=== PATIENT | female | born 1965 | race Caucasian/White ===

== ENCOUNTER → 2017-05-26 | Outpatient (CLI) | payer OTHER ==
[~2017-05-26] MED LIST: ASCA500 PO; ATEN-173 PO; BIOT1CAP8 PO; BIOTCAP2 PO; CALC-388 PO; CALC600T9 PO; CRAN1CAP15 PO; CRAN1TAB PO; FISHOIL PO; METO25TA3 PO; MULT-506 PO; OMEGCAP2 PO; OMEP40CA41 PO; PRVIN525X INH; THIA250T7 PO; TURM500T PO; VNTHFA/IN INH
[2017-05-26 09:56] LABS: CHOLESTEROL/HDL RATIO 3.2
== END | disposition home or self-care (01) ==
LOC: C.LAB 07:19
PROVIDERS: ATTEND Family Medicine
DX: Z00.00 Encounter for general adult medical examination without abnormal findings (principal)

== ENCOUNTER → 2017-09-08 | Day surgery (SDC) | payer OTHER ==
[2017-08-27 09:11] VITALS: BMI 34.0
[~2017-09-08] VITALS: Ht 162.6 cm; Wt 90.9 kg
[~2017-09-08] MED LIST changes: -ATEN-173 PO; -BIOT1CAP8 PO; -CALC-388 PO; -CRAN1CAP15 PO; +FENTANYL CITRATE INJ 50 MCG/1 ML 2 ML VIAL ONE; -FISHOIL PO; +LIDOCAINE HCL 2% 2 ML VIAL (20MG/ML) ONE; +PROPOFOL IV EMULSION 10 MG/ML 20 ML VIAL IV ONE; +SODIUM CHLORIDE 0.9% 500ML 500 ML IV ONE
[2017-09-08 11:00] VITALS: Ht 162.6 cm; Wt 90.9 kg
--- NOTE | 2017-09-08 11:20 | Endo History and Physical ---
History & Physical Date of Service: Sep 08, 2017. Chief Complaint: ABDOMINAL PAIN Referring Physician: DR CASTILLO History of Present Illness 52 yo CF who presents for EGD secondary to abdominal pain. Past Medical History Arthritis, Asthma, Reflux, Hypertension, Other Past Surgical History Hx Cardiac Surgery: No Hx Internal Defibrillator: No Hx Pacemaker: No Hx Abdominal Surgery: Yes (XU BSO, GASTRIC BYPASS, X2, LAP DWIGHT) Hx of Implantable Prosthesis: No Hx Post-Op Nausea and Vomiting: No Hx Cancer Surgery: No Hx Thoracic Surgery: No Hx Orthopedic: No Hx Urinary Tract Surgery: No Family History Colon CA Social History Smoking Status: Never Smoker Hx Substance Use: No Hx Alcohol Use: No Allergies Coded Allergies: Penicillins (Verified Allergy, Unknown, HIVES, 08/27/17) Sulfa Drugs (Verified Allergy, Unknown, HIVES, 08/27/17) Current Medications Reported Home Medications Medications Dose Route/Sig Max Daily Dose Days Date Category Ventolin Hfa (Albuterol) 200 Puffs/84673 Mcg Aers 2-4 Puffs INH Q6H PRN 08/27/17 Reported Albuterol Sulfate (Albuterol Sulf) 2.5 Mg/0.5 Ml Nebu 1 Dose INH UD PRN 08/27/17 Reported Biotin 5000 (Biotin) 5 Mg Cap 1 Cap PO QPM 08/27/17 Reported Cranberry (Cranberry (Vaccinium Macrocarp) 125 Mg Tab 1 Tab PO QAM 08/27/17 Reported Turmeric (Turmeric (Curcuma Longa)) 500 Mg Tab 1 Tab PO BID 08/27/17 Reported Vitamin C (Ascorbic Acid) 500 Mg Tab 1,000 Mg PO BID 08/27/17 Reported Vitamin B1 (Thiamine Hcl) 250 Mg Tab 1 Tab PO QAM 08/27/17 Reported Fish Oil ([place]-3 Fatty Acids) 1 Cap Cap 1 Cap PO QAM 08/27/17 Reported Calcium + D (Calcium Carbonate-Vitamin D) 1 Tab Tab 1 Tab PO BID 08/27/17 Reported Multivitamin (Multivitamins) Tab 1 Tab PO QAM 08/27/17 Reported Prilosec (Omeprazole) 40 Mg Cap 40 Mg PO QAM 08/27/17 Reported Toprol-Xl (Metoprolol Succinate) 25 Mg Tabcr 0.5 Tab PO QAM 08/27/17 Reported Vital Signs Weight (Kilograms): 90.91 Height (Feet): 5 Height (Inches): 4 Date Time Temp Pulse Resp B/P (MAP) Pulse Ox O2 Delivery O2 Flow Rate FiO2 09/08/17 11:10 170/100 (123) 09/08/17 11:09 37.1 61 20 161/100 (120) 100 Room Air Physical Exam General Appearance: WD/WN, no apparent distress Respiratory/Chest: Auscultation: breath sounds normal Cardiovascular: Heart Auscultation: RRR Abdomen: Bowel Sounds: normal Inspection & Palpation: soft, non-distended, no tenderness, guarding & rebound Assessment and Plan Assessment: 52 yo CF who presents for EGD secondary to abdominal pain. Plan: Proceed with EGD.
--- NOTE | 2017-09-08 11:48 | Discharge Instructions ---
Endoscopy Patient Instructions Date / Procedure(s) Performed Sep 08, 2017. EGD Allergy Information Coded Allergies: Penicillins (Verified Allergy, Unknown, HIVES, 09/08/17) Sulfa Drugs (Verified Allergy, Unknown, HIVES, 09/08/17) Discharge Date / Findings Sep 08, 2017. Normal EGD Medication Instructions OK to resume all medications today as prescribed Reported Home Medications Medications Dose Route/Sig Max Daily Dose Days Date Category Ventolin Hfa (Albuterol) 200 Puffs/54749 Mcg Aers 2-4 Puffs INH Q6H PRN 08/27/17 Reported Albuterol Sulfate (Albuterol Sulf) 2.5 Mg/0.5 Ml Nebu 1 Dose INH UD PRN 08/27/17 Reported Biotin 5000 (Biotin) 5 Mg Cap 1 Cap PO QPM 08/27/17 Reported Cranberry (Cranberry (Vaccinium Macrocarp) 125 Mg Tab 1 Tab PO QAM 08/27/17 Reported Turmeric (Turmeric (Curcuma Longa)) 500 Mg Tab 1 Tab PO BID 08/27/17 Reported Vitamin C (Ascorbic Acid) 500 Mg Tab 1,000 Mg PO BID 08/27/17 Reported Vitamin B1 (Thiamine Hcl) 250 Mg Tab 1 Tab PO QAM 08/27/17 Reported Fish Oil (Jbphh-3 Fatty Acids) 1 Cap Cap 1 Cap PO QAM 08/27/17 Reported Calcium + D (Calcium Carbonate-Vitamin D) 1 Tab Tab 1 Tab PO BID 08/27/17 Reported Multivitamin (Multivitamins) Tab 1 Tab PO QAM 08/27/17 Reported Prilosec (Omeprazole) 40 Mg Cap 40 Mg PO QAM 08/27/17 Reported Toprol-Xl (Metoprolol Succinate) 25 Mg Tabcr 0.5 Tab PO QAM 08/27/17 Reported Provider Instructions Activity Restrictions - No exercising or heavy lifting for 24 hours. - Do not drink alcohol the day of the procedure. - Do not drive a car or operate machinery until the day after the procedure. - Do not make any important decisions or sign important papers in 24 hours after the procedure. Following Day: - Return to full activity which may include returning to work/school. Diet Start your diet with liquids and light foods (jello, soup, juice, toast). Then eat your usual diet if not nauseated. Treatment For Common After Affects For mild abdominal pain, bloating, or excessive gas: - Rest - Eat lightly - Lie on right side Follow-Up Information Follow-up with DR CASTILLO as scheduled Anesthesia Information What You Should Know You have had a procedure that required some medicine to reduce anxiety and discomfort. This treatment is called moderate sedation. After receiving the treatment, you may be sleepy, but you will be able to breathe on your own. The effects of the treatment may last for several hours. Follow these instructions along with Activity/Diet recommendations noted above: * Do NOT do anything where dizziness or clumsiness would be dangerous. * Rest quietly at home today, then you can be up and about tomorrow. * Have a responsible person stay with you the rest of today. * You may have had an I.V. today. If so, you may take the dressing off later today. Recommendations Call your doctor if: * Trouble breathing * Continuous vomiting for more than 24 hours * Temperature above 101 degrees * Severe abdominal pain or bloating * Pain not relieved by pain medicine ordered * There is increased drainage or redness from any incision * A large amount of rectal bleeding greater than 2-3 tablespoons. (If you had a polyp/s removed or have hemorrhoids, a small amount of blood - from the rectum is to be expected.) * You have any unanswered questions or concerns. IN THE EVENT OF A SERIOUS EMERGENCY, GO TO THE NEAREST EMERGENCY ROOM Your discharge instructions were prepared by provider Kevin Jennings. Patient Instructions Signature Page Jessi Chandler Patient (or Guardian) Signature/Date: I have read and understand the instructions given to me by my caregivers. Caregiver/RN/Doctor Signature/Date: The above-named patient and/or guardian has received patient instructions on this date. + Original Patient Signature Page (only) stays with chart. Please make copy for patient.
--- NOTE | 2017-09-08 11:52 | GI REPORT ---
Procedure Date: 09/08/2017 11:27 AM Procedure: Upper GI endoscopy Indications: Epigastric abdominal pain Medicines: Monitored Anesthesia Care Complications: No immediate complications. Estimated Blood Loss: Estimated blood loss: none. Procedure: Pre-Anesthesia Assessment: - Prior to the procedure, a History and Physical was performed, and patient medications and allergies were reviewed. The patient's tolerance of previous anesthesia was also reviewed. The risks and benefits of the procedure and the sedation options and risks were discussed with the patient. All questions were answered, and informed consent was obtained. Prior Anticoagulants: The patient has taken no previous anticoagulant or antiplatelet agents. ASA Grade Assessment: II - A patient with mild systemic disease. After reviewing the risks and benefits, the patient was deemed in satisfactory condition to undergo the procedure. After obtaining informed consent, the endoscope was passed under direct vision. Throughout the procedure, the patient's blood pressure, pulse, and oxygen saturations were monitored continuously. The scope was introduced through the mouth, and advanced to the jejunum. The upper GI endoscopy was accomplished without difficulty. The patient tolerated the procedure well. Findings: The examined esophagus was normal. Evidence of a Loretta-en-Y gastrojejunostomy was found. The gastrojejunal anastomosis was characterized by healthy appearing mucosa. This was traversed. The [id number] limb was characterized by healthy appearing mucosa. The [id number]-ru-bmgpanj limb was not examined as it could not be found. The examined jejunum was normal. Impression: - Normal esophagus. - Loretta-en-Y gastrojejunostomy with gastrojejunal anastomosis characterized by healthy appearing mucosa. - Normal examined jejunum. - No specimens collected. Recommendation: - Resume previous diet. - Continue present medications. - Return to primary care physician as previously scheduled. Kevin Jennings DO 09/08/2017 11:51:53 AM This report has been signed electronically. Note Initiated On: 09/08/2017 11:27 AM I attest to the content of the Intraoperative Record and orders documented therein, exceptions below
[2017-09-08 12:15] VITALS: BP 169/99; PULSE 70; O2SAT 98
--- NOTE | 2017-09-08 12:37 | Anesthesiology Progress Note ---
Anesthesia Post Op Note Date & Time Sep 08, 2017 at 12:36 Vital Signs Pain Intensity: 0 Vital Signs Past 12 Hours Date Time Temp Pulse Resp B/P (MAP) Pulse Ox O2 Delivery O2 Flow Rate FiO2 09/08/17 12:15 70 20 169/99 (122) 98 Room Air 09/08/17 11:58 68 20 141/92 (108) 96 Room Air 09/08/17 11:48 70 16 142/89 (106) 96 Room Air 09/08/17 11:10 170/100 (123) 09/08/17 11:09 37.1 61 20 161/100 (120) 100 Room Air Notes Mental Status: alert / awake / arousable, participated in evaluation Pt Amnestic to Procedure: Yes Nausea / Vomiting: adequately controlled Pain: adequately controlled Airway Patency, RR, SpO2: stable & adequate BP & HR: stable & adequate Hydration State: stable & adequate Anesthetic Complications: no major complications apparent
== END | disposition home or self-care (01) ==
LOC: C.GI 10:43
PROVIDERS: ATTEND Internal Medicine
DX: R10.13 Epigastric pain (principal); Z98.84 Bariatric surgery status; I10 Essential (primary) hypertension; K21.9 Gastro-esophageal reflux disease without esophagitis; J45.909 Unspecified asthma, uncomplicated; M19.90 Unspecified osteoarthritis, unspecified site; Z80.0 Family history of malignant neoplasm of digestive organs; Z79.899 Other long term (current) drug therapy

== ENCOUNTER → 2018-01-25 | Outpatient (CLI) | payer OTHER ==
[~2018-01-25] MED LIST changes: -FENTANYL CITRATE INJ 50 MCG/1 ML 2 ML VIAL ONE; -LIDOCAINE HCL 2% 2 ML VIAL (20MG/ML) ONE; -PROPOFOL IV EMULSION 10 MG/ML 20 ML VIAL IV ONE; -SODIUM CHLORIDE 0.9% 500ML 500 ML IV ONE
== END | disposition home or self-care (01) ==
LOC: C.RDSM 17:35
PROVIDERS: ATTEND Family Medicine Sports Medicine
DX: M79.671 Pain in right foot (principal); M25.561 Pain in right knee; Z88.0 Allergy status to penicillin; Z88.2 Allergy status to sulfonamides

== ENCOUNTER → 2018-06-30 | Outpatient (CLI) | payer OTHER | END | disposition home or self-care (01) | LOC: C.LAB 07:17 | PROVIDERS: ATTEND Family Medicine | DX: Z00.00 Encounter for general adult medical examination without abnormal findings (principal) ==